=== PATIENT | male | born 2000 | race Caucasian/White ===

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

== ENCOUNTER → 2021-08-18 10:49 | Outpatient (CLI) | payer OTHER, SELFPAY ==
--- NOTE | ~2021-08-18 | CT_ITS ---
EXAMINATION: CT sinus wo con DATE: 08/18/2021 11:21 INDICATION: Chronic pansinusitis. Sinus infection for one to 1.5 months. Recent positive strep infect ion. TECHNIQUE: Computed tomography (CT) of the paranasal sinuses was performed without contrast. Iterativ e reconstruction technique was employed. Exam dose: 287.09 mGy-cm total exam DLP. COMPARISON: None FINDINGS: There is rightward bowing of the nasal septum. The nasal turbinates are moderately prominent relatively symmetric in size. There is intralamellar cell of both middle nasal turbinates and ankita bullosa of the left middle alex al turbinate. There is mild soft tissue thickening of the right maxillary ostium and right infundibulum, without oc clusion. There is minimal mucoperiosteal thickening of the right maxillary sinus. There is soft tissue thickening occluding the left maxillary ostium and nearly completely opacifying the left infundibulum. There is prominent patchy opacification of the left ethmoid air cells and moderately prominent opacif ication right ethmoid air cells. There is moderate mucoperiosteal thickening of the left frontal sinus. There is minimal mucoperiosteal thickening of the sphenoid sinuses. The mastoid air cells are normally developed and aerated. IMPRESSION: Intralamellar cell of both middle nasal turbinates, ankita bullosa of left middle nasal turbinate Mild soft tissue thickening of the right maxillary ostium and infundibulum Soft tissue occlusion of the left maxillary ostium, prominent soft tissue thickening of the left infu ndibulum and very prominent mucoperiosteal thickening of the left maxillary sinus Patchy opacification of bilateral ethmoid air cells Mild mucoperiosteal thickening of the left frontal sinus Minimal mucoperiosteal thickening of the sphenoid sinuses and right maxillary sinus Reviewed, dictated and finalized at [facility] Reviewed, dictated and finalized at [facility] [employer] IMPRESSION: Intralamellar cell of both middle nasal turbinates, ankita bullosa of left middle nasal turbinate Mild soft tissue thickening of the right maxillary ostium and infundibulum Soft tissue occlusion of the left maxillary ostium, prominent soft tissue thick ening of the left infundibulum and very prominent mucoperiosteal thickening of the left maxillary sinus Patchy opacification of bilateral ethmoid air cells Mild mucoperiosteal thickening of the left frontal sinus Minimal mucoperiosteal thickening of the sphenoid sinuses and right maxillary s inus
== END ==
PROVIDERS: PCP Internal Medicine; Visit Provider Internal Medicine
DX: J32.4 Chronic pansinusitis (principal)
CPT/HCPCS: 70486